=== PATIENT | male | born 1940 | race Caucasian/White ===

== ENCOUNTER 2020-07-04 11:18 | Emergency (ER) | payer MEDICARE, OTHER, SELFPAY ==
[2020-07-04] VITALS (9 sets, daily range): BP systolic 145–199; BP diastolic 74–99; PULSE 48–65; RESP 18; TEMP 37; O2SAT 96–99; BMI 25.0
--- NOTE | 2020-07-04 11:33 | ED_ITS ---
HPI - Back Pain/Injury General Chief Complaint: Hypertension Stated Complaint: psin lower back/high blood pressure Time Seen by Provider: 07/04/20 11:20 Source: patient and family Mode of arrival: Ambulatory Limitations: no limitations History of Present Illness HPI Narrative: 79-year-old male former smoker presents with his son and a chief complaint of an episode of left lower rib pain associated with shortness of breath that started rather suddenly last evening. He states it lasted approximately 20-30 minutes and seemed to resolve by and large on its own. Over the course of the evening he did notice that his blood pressure started rising from his normal up into the 200s. He denied any headache, blurred vision. He has got no chest pain and denies any recent cough, sneezing or injuries. He denies nausea, vomiting or diarrhea. He denies any abdominal pain. He denies any dysuria, frequency or urgency. When present his pain was very sharp and stabbing and much worse with palpation and moving. His son states he looked short of breath when it was hurting, and stated it hurt worse to take a deep b reath Complaint: back pain Onset (ago): hour(s) Duration: now resolved Similar Symptoms Previously: No Location: left lower back Severity: severe Quality: sharp Radiation: none Severity scale (1-10): 7 Relieving factors: immobilization Exacerbating factors: walking and deep breaths Associated symptoms: denies other symptoms Related Data Home Medications Medication Instructions Recorded Confirmed MULTIVITAMIN (Multivitamin 1 cap PO EVERY DAY #0 05/19/06 -) [GLUCOSAMINE] Q DAY #0 05/19/06 Allergies Allergy/AdvReac Type Severity Reaction Status Date / Time No Known Allergies Allergy Unknown Uncoded 07/04/20 11:26 Review of Systems Constitutional Constitutional: Denies chills, Denies fatigue, Denies fever(s), Denies frequent falls, Denies lethargy and Denies weakness Eyes Eyes: Denies change in vision, Denies eye discharge, Denies irritation and Denies loss of vision ENT Ears, Nose, Mouth, and Throat: Denies change in voice, Denies dizziness, Denies neck pain, Denies sore throat and Denies throat swelling Cardiovascular Cardiovascular: Denies chest pain, Denies irregular heart rhythm, Denies lightheadedness, Denies palpitations, Denies dyspnea, Denies dyspnea on exertion and Denies orthopnea Respiratory Respiratory: Denies cough, Reports pain on inspiration, Denies dyspnea, Denies dyspnea on exertion and Denies wheezing Gastrointestinal Gastrointestinal: Denies abdominal pain, Denies change in bowel habits, Denies diarrhea, Denies nausea and Denies vomiting Musculoskeletal Musculoskeletal: Reports back pain (left posterior rib), Denies neck pain and Denies numbness Integumentary/Breasts Skin/Breast: Denies pruritus, Denies erythema, Denies rash and Denies wounds Neurologic Neurologic: Denies behavioral changes, Denies confusion, Denies dizziness, Denies frequent falls, Denies loss of vision, Denies numbness and Denies weakness Psychiatric Psychiatric: Denies anxiety, Denies behavioral changes, Denies confusion, Denies depression, Denies homicidal ideation and Denies suicidal ideation Endocrine Endocrine: Denies fatigue, Denies flushing and Denies palpitations Hematologic/Lymphatic Hematologic/Lymphatic: Denies easy bruising Allergic/Immunologic Allergic/Immunologic: Denies urticaria, Denies throat swelling and Denies wheezing Patient History Social History Smoking Status: Former smoker Smoking Status: Former smoker alcohol intake frequency: 0-2 drinks per day Alcohol type: beer Substance Use Type: does not use Exam Narrative Exam Narrative: GENERAL: [79] year old patient appears stated age. Well- nourished, well-developed patient, in mild distress. HEAD: Atraumatic. Normocephalic. EYES: Pupils equal round and reactive. Extraocular motions intact. No scleral icterus. No injection or drainage. ENT: Nose without bleeding, purulent drainage. Throat without erythema, tonsillar hypertrophy or exudate. Airway patent. NECK: Trachea midline. Non tender CARDIOVASCULAR: Regular rate and rhythm without murmurs, gallops, or rubs. RESPIRATORY: Clear to auscultation. Breath sounds equal bilaterally. No wheezes, rales, or rhonchi. GASTROINTESTINAL: Abdomen soft, non-tender, nondistended. EXTREMITIES: No edema or joint tenderness. BACK: Nontender without deformity or crepitance. No flank tenderness. NEURO: AOx3. SKIN: No rash or erythema of visible areas Initial Vital Signs Initial Vital Signs: Vital Signs Pulse Rate 65 07/04/20 11:22 Pulse Oximetry 97 07/04/20 11:22 Course Orders Ordered: ED Orders 07/04/20 11:34 XR chest 2V Stat 07/04/20 11:35 Basic Metabolic Panel Stat Complete Blood Count AUTO DIFF Stat D Dimer Stat NT-proBNP (BNP-Adult 18+) Stat Troponin & CK Cardiac Panel Stat 07/04/20 12:12 CT angio chest PE protocol Stat Vital Signs Vital signs: Vital Signs - 8 hr 07/04/20 12:00 07/04/20 12:36 07/04/20 13:00 Pulse Rate 55 L 54 L Blood Pressure 170/85 H 170/85 H Pulse Oximetry 99 97 97 07/04/20 13:12 Pulse Rate 48 L Blood Pressure 145/74 H Pulse Oximetry 96 MDM - Back Pain/Injury Lab Data Result diagrams: 07/04/20 11:35 07/04/20 11:35 Labs: Lab Results 07/04/20 07/04/20 07/04/20 Range/Units 11:35 11:35 11:35 WBC 5.4 (4.5-11.0) X10^3/uL RBC 5.03 (4.5-5.9) X10^6/uL Hgb 14.8 (13.5-17.5) g/dL Hct 43.6 (41-53) % MCV 86.8 (80-100) fL MCH 29.5 (26-34) PG MCHC 34.0 (30-36) % RDW 13.4 (11.6-14.8) % Plt Count 162 (150-400) X10^3/uL Neut % (Auto) 49.9 L (50-75) % Lymph % (Auto) 36.0 (25-40) % Humphreys % (Auto) 11.2 (3-14) % Eos % (Auto) 2.2 (2-4) % Baso % (Auto) 0.7 (0-2) % Neut # (Auto) 2700 (3501-5486) /uL Lymph # (Auto) 1900 (4094-3749) /uL Humphreys # (Auto) 600 (0-900) /uL Eos # (Auto) 100 (0-450) /uL Baso # (Auto) 0 (0-100) /uL D-Dimer 960 H (<230) ng/mL Sodium 139 (137-145) mmol/L Potassium 4.4 (3.4-5.1) mmol/L Chloride 105 (98-107) mmol/L Carbon Dioxide 32 (22-32) mmol/L BUN 17 (9-20) mg/dL Creatinine 0.99 (0.66-1.25) mg/dL Estimated GFR > 60.0 (>60) mL/min BUN/Creatinine Ratio 17.2 (6-22) Glucose 113 H (80-110) mg/dL Calcium 9.4 (8.4-10.2) mg/dL Total Creatine Kinase 107 (55-170) U/L CK-MB (CK-2) 2.08 (<2.37) ng/mL CK-MB (CK-2) Rel Index 1.9 (1.5-5.0) % Troponin I < 0.012 (0.01-0.034) ng/mL NT-Pro-B Natriuret Pep 72 (<450) pg/mL Urine Dip Bedside Urine Glucose Negative Bedside Urine Bilirubin - Negative Bedside Urine Ketone - Negative Urine Specific [place] 1.010 Bedside Urine Occult Blood - Negative Bedside Urine pH 6 Bedside Urine Protein - Negative Bedside Urine Urobilinogen - Negative Bedside Urine Nitrite - Negative Bedside Urine Leukocytes - Negative Esterase Imaging Data CT scan - chest: Radiologist's Impression: Chart Viewer Diagnostics DATE TYPE STATUS REF RANGE/AUTHOR Hx Today 12:12 Lamine Agudelo Today 11:34 Lamine Agudelo John P 79, [id number] DEP ER, Main ED 167.64cm 70.307kg BMI: 25.0kg/m? Hypertension Search Chart No Data to Display NonFormulary Not Included in Conflicts ONSET Today 13:12 Catrachito Ashton 79 M [address] [id number] Scan ReportSigned Patient: Poli,Catrachito PMR#: [id number]: 1940cct:[id number]/Sex: 79 / MDate of Service: 07/04/20Loc: EDAccession Number: [id number] Procedure: CT angio chest PE protocol Ordering Provider: Jagjit Adrian D.O. PROCEDURE: CT ANGIO CHEST PE PROTOCOL INDICATIONS: sudden left posterior rib pain, dyspnea, elevated Ddimer TECHNIQUE: After the administration of intravenous contrast, 2 mm thick sections acquired from the pulmonary apices to the posterior costophrenic angles. 3-dimensional maximum intensity projection (MIP) coronal and sagittal reformats were then acquired through the thorax. For radiation dose reduction, the following was used: automated exposure control, adjustment of mA and/or kV according to patient size. COMPARISON: [facility], CR, XR CHEST 2V, 07/04/2020, 11:41. FINDINGS: Image quality: Excellent. Pulmonary arteries: Pulmonary arteries are normal in size, and demonstrate no intraluminal filling defects to suggest central pulmonary embolism. Lungs and pleura: Mild dependent atelectasis can be seen sides. No focal infiltrates are seen. No pleural effusions or pneumothorax. Central and peripheral airways are patent. Mediastinum: Heart size is normal, without pericardial effusion. No mediastinal or hilar adenopathy. Thoracic aorta is normal in caliber and enhancement. Esophagus is normal in caliber. There is a small to moderate hiatal hernia. Bones and chest wall: No suspicious bony lesions. Mild levoconvex scoliotic curvature is noted. Accentuated thoracic kyphosis is seen. Age-appropriate bony degenerative changes are seen. Ribs and thoracic spine appear intact throughout. Thyroid gland demonstrates no significant abnormality. No axillary or supraclavicular adenopathy. Abdomen: Visualized upper abdominal solid organs appear normal in the early arterial phase of enhancement. IMPRESSION: Negative for pulmonary embolism. Incidental note is made of: Dependent atelectasis Small to moderate hiatal hernia Dictated by: Lamine Agudelo M.D. on 07/04/2020 at 11:50 Approved by: Lamine Agudelo M.D. on 07/04/2020 at 11:52 MDM Narrative Medical decision making narrative: Multiple etiologies for patient's symptoms considered including: [Musculoskeletal versus pulmonary embolism versus pneumonia versus kidney stone versus kidney infection versus other ] Patient's symptoms improved over duration of stay with above-stated therapies. Findings and discharge diagnosis discussed with patient/family followed by verbalization of understanding Return precautions discussed with patient/family whom verbalize understanding. Discharge Plan Departure Patient Disposition: Home Clinical Impression: Acute flank pain Hypertension Qualifiers: Hypertension type: essential hypertension Qualified Code(s): I10 - Essential (primary) hypertension Instructions: DI for High Blood Pressure Activity Restrictions/Additional Instructions: *You have been diagnosed with [hypertension and episode of left lower rib pain] *What to do: *Take medications as directed *Follow up with your primary care provider in 2-3 days, call for an appointment. Let them know you were seen in the Emergency Department and that we ask that you be seen in follow up *Return to ER if you should have any new, worsening or concerning symptoms Prescriptions: No Action MULTIVITAMIN (Multivitamin -) 1 cap PO EVERY DAY Qty: 0 RF: 0 [GLUCOSAMINE] Q DAY Qty: 0 RF: 0
--- NOTE | 2020-07-04 11:34 | DI.RAD.S_ITS ---
PROCEDURE: XR CHEST 2V INDICATIONS: left posterior rib pain, dyspnea TECHNIQUE: 2 views of the chest were acquired. COMPARISON: None. FINDINGS: Surgical changes and devices: None. Lungs and pleura: Lungs are clear. No pleural effusions or pneumothorax. Mediastinum: The cardiac contours are within normal limits. The aorta demonstrates calcification and tortuosity. Bones and chest wall: In this patient with this given history, scrutiny is given to the left inferior ribs. No definite rib fractures are seen. No suspicious bony abnormalities. Soft tissues appear unremarkable. IMPRESSION: No rib fractures or pneumothorax can be seen on these plain films. Dictated by: Lamine Agudelo M.D. on 07/04/2020 at 11:08 Approved by: Lamine Agudelo M.D. on 07/04/2020 at 11:09
[2020-07-04 11:47] LABS: Add Manual Diff / Slide Review NO; Basophils Absolute Auto 0 /uL (0-100); Basophils Percent Auto 0.7 % (0-2); Eosinophils Absolute Auto 100 /uL (0-450); Eosinophils Percent Auto 2.2 % (2-4); Hematocrit 43.6 % (41-53); Hemoglobin 14.8 g/dL (13.5-17.5); Lymphocytes Absolute Auto 1900 /uL (1100-4500); Mean Corpuscular Hemoglobin 29.5 PG (26-34); Mean Corpuscular Volume 86.8 fL (80-100); Monocytes Absolute Auto 600 /uL (0-900); Monocytes Percent Auto 11.2 % (3-14); Neutrophils Absolute Auto 2700 /uL (1500-7000); Neutrophils Percent Auto 49.9 % (50-75); Platelet Count 162 X10^3/uL (150-400); Red Blood Cell Count 5.03 X10^6/uL (4.5-5.9); Red Cell Distribution Width 13.4 % (11.6-14.8); White Blood Cell Count 5.4 X10^3/uL (4.5-11.0)
[2020-07-04 11:57] LABS: D Dimer 960 ng/mL (<230)
[2020-07-04 12:01] LABS: BUN Creatinine Ratio 17.2 (6-22); Blood Urea Nitrogen 17 mg/dL (9-20); Calcium 9.4 mg/dL (8.4-10.2); Carbon Dioxide 32 mmol/L (22-32); Chloride 105 mmol/L (98-107); Creatine Kinase 107 U/L (55-170); Estimated Glomerular Filt Rate > 60.0 mL/min (>60); Glucose 113 mg/dL (80-110); HEMOLYSIS < 15 (0-50); Potassium 4.4 mmol/L (3.4-5.1); Sodium 139 mmol/L (137-145)
[2020-07-04 12:12] LABS: NT-proBNP (BNP-Adult 18+) 72 pg/mL (<450); Troponin I < 0.012 ng/mL (0.01-0.034)
--- NOTE | 2020-07-04 12:12 | DI.CT.S_ITS ---
PROCEDURE: CT ANGIO CHEST PE PROTOCOL INDICATIONS: sudden left posterior rib pain, dyspnea, elevated Ddimer TECHNIQUE: After the administration of intravenous contrast, 2 mm thick sections acquired from the pulmonary apices to the posterior costophrenic angles. 3-dimensional maximum intensity projection (MIP) coronal and sagittal reformats were then acquired through the thorax. For radiation dose reduction, the following was used: automated exposure control, adjustment of mA and/or kV according to patient size. COMPARISON: [facility], CR, XR CHEST 2V, 07/04/2020, 11:41. FINDINGS: Image quality: Excellent. Pulmonary arteries: Pulmonary arteries are normal in size, and demonstrate no intraluminal filling defects to suggest central pulmonary embolism. Lungs and pleura: Mild dependent atelectasis can be seen sides. No focal infiltrates are seen. No pleural effusions or pneumothorax. Central and peripheral airways are patent. Mediastinum: Heart size is normal, without pericardial effusion. No mediastinal or hilar adenopathy. Thoracic aorta is normal in caliber and enhancement. Esophagus is normal in caliber. There is a small to moderate hiatal hernia. Bones and chest wall: No suspicious bony lesions. Mild levoconvex scoliotic curvature is noted. Accentuated thoracic kyphosis is seen. Age-appropriate bony degenerative changes are seen. Ribs and thoracic spine appear intact throughout. Thyroid gland demonstrates no significant abnormality. No axillary or supraclavicular adenopathy. Abdomen: Visualized upper abdominal solid organs appear normal in the early arterial phase of enhancement. IMPRESSION: Negative for pulmonary embolism. Incidental note is made of: Dependent atelectasis Small to moderate hiatal hernia Dictated by: Lamine Agudelo M.D. on 07/04/2020 at 11:50 Approved by: Lamine Agudelo M.D. on 07/04/2020 at 11:52
[2020-07-04 12:15] LABS: CKMB % Relative Index 1.9 % (1.5-5.0); Creatine Kinase MB 2.08 ng/mL (<2.37)
== END 2020-07-04 13:16 | disposition home or self-care (01) ==
PROVIDERS: Emergency Provider Emergency Medicine
DX: R10.9 Unspecified abdominal pain (principal); R07.81 Pleurodynia; R06.02 Shortness of breath; I10 Essential (primary) hypertension
CPT/HCPCS: 36415; 71046; 71275; 80048; 81003; 82550; 82553; 83880; 84484; 85025; 85379; 99281; 99284